=== PATIENT | female | born 1990 | race African-American/Black ===

== ENCOUNTER 2021-08-24 21:36 | Emergency (ER) | payer OTHER ==
[~2021-08-24] VITALS: Ht 157.5 cm; Wt 52.2 kg
[~2021-08-24 21:36] MED LIST: ACETAMINOPHEN-120 ML PO; ACETAMINOPHEN325 M1 PO; APAP500 PO; AUGMENTIN 500-1 EACH PO; AZITHROMYCIN 2250 MG PO; BIRTH CONTROL; COLACE 100 MG100 MG PO; DEPO-PROVERA; DERMOPLAST SPRA56 ML; HYDROCODONE-AP1 EAC6 PO; IBUPROFEN 600600 M1 PO; IBUPROFEN 800800 M1 PO; IRON325 PO; LANOLIN56 GM; MEDROL DOSPAK21 TAB PO; NOHOMEMEDICATIONS; NORCO 5-325 TA1 EACH PO; PRENATAL PO; TUCKS MEDICATE1 EAC1; ULTRAM 50MG TAB50 MG PO
[2021-08-24 21:46] VITALS: BP 148/106
== END 2021-08-24 23:20 | disposition home or self-care (01) ==
LOC: ER 21:36
DX: M79.672 Pain in left foot (principal); J45.909 Unspecified asthma, uncomplicated; Z79.899 Other long term (current) drug therapy